=== PATIENT | female | born 1995 | race Caucasian/White ===

== ENCOUNTER 2017-02-11 04:28 | Emergency (ER) | payer BC ==
--- NOTE | 2017-02-11 05:40 | ER Document Report ---
ED GI/ - General Chief Complaint: Vag Bleeding, +preg <12wks Stated Complaint: VAGINAL BLEEDING Mode of Arrival: Ambulatory Information source: Patient TRAVEL OUTSIDE OF THE [place] IN LAST 30 DAYS: No - HPI Notes: 02/11/17 05:36 Patient arrives with complaints of vaginal bleeding. Says a who is approximate 6-8 weeks whose last normal menstrual period was December 07. She states that the last several weeks after intercourse she's had some light bleeding. She has discussed this with her primary care physician told her not to worry about and that she was passing clots. She woke up this morning to urinate and noticed that she was having heavier vaginal bleeding with clots. She states she was having some low back and lower abdominal cramping, but states that she has no cramping or pain currently. She denies any fevers. She still somewhat nauseous, but denies any vomiting or diarrhea. No dysuria or hematuria. She has not had a formal ultrasound versus an seen by NEUROUROLOGIST at this point. She does not know her blood type. She denies a rash or injury. She denies any intercourse in the last 12 hours. Her complaints at this moment. - Related Data Allergies/Adverse Reactions: No Known Allergies Allergy (Unverified 01/13/16 00:21) Past Medical History - Social History Smoking Status: Unknown if Ever Smoked Family History: Reviewed & Not Pertinent Patient has suicidal ideation: No Patient has homicidal ideation: No Renal/ Medical History: Denies: Hx Peritoneal Dialysis Review of Systems - Review of Systems -: Yes All other systems reviewed and negative Physical Exam - Vital signs Vitals: Temp Pulse Resp BP Pulse Ox 98.3 F 87 20 122/83 98 02/11/17 04:32 02/11/17 04:32 02/11/17 04:32 02/11/17 04:32 02/11/17 04:32 - Notes Notes: GENERAL: alert, cooperative, nontoxic, no distress. HEAD: normocephalic, atraumatic EYES: conjunctiva pink without discharge, no external redness or swelling. EARS: no external swelling, no external redness NOSE: atraumatic, no external swelling MOUTH/THROAT: mucous membranes moist and pink, posterior pharynx without erythema, swelling, exudate. No trismus or drooling. NECK: soft, supple, full range of motion, no meningismus. CHEST: no distress, lungs clear and equal throughout. No wheezing, rales, rhonchi. CARDIAC: regular rate and rhythm, no murmur, normal capillary refill, normal pulses. No peripheral edema noted. ABDOMEN: Soft, minimal tenderness over the suprapubic area. No rebound tenderness or guarding. BACK: full range of motion, no CVA tenderness. EXTREMITIES: full range of motion of all extremities. No redness, no swelling. NEURO: alert and oriented 3, no focal deficits, full range of motion of all extremities. PYSCH: appropriate mood, affect. Patient is cooperative. SKIN: pink, warm, dry, no rash. - Genitourinary External exam: Normal Speculum exam: Cervix closed. No: Vaginal discharge, Products of conception, Vaginal lacerations Vaginal bleeding: Mild Bimanuel exam: Normal. No: Cervical motion tender, Bladder/Urethral tender, Adnexal mass, Adnexal tenderness, Uterus enlarged Course - Re-evaluation Re-evalutation: 02/11/17 07:16 02/11/17 07:16 Patient is nontoxic with stable vitals. Patient has approximate 6 weeks and started vaginal bleeding today. Pelvic exam shows small amount of blood within the vaginal vault, no active bleeding. Cervical os is closed. No tenderness on bimanual exam. Ultrasound shows intrauterine without activity, this may be due to early . Patient's quantitative hCG is 6194. This point the patient will need a repeat Quant to ensure that it is rising. I discussed all this with the patient. Her blood type is O+, therefore RhoGAM is not indicated. She'll be instructed to have her hCG rechecked in 2 days. Follow up with her NEUROUROLOGIST at the next available appointment. Follow-up sooner for increased pain, severe bleeding, high fever, or any further concerns. I will check the patient's GC chlamydia cultures which are currently pending at this time. The patient is noted to have elevated blood pressure during today's emergency department visit. The patient was informed of this finding. The patient was instructed that this may be related to pre-hypertension and requires further evaluation with a primary care provider. The patient has no hypertensive symptoms at this time. The patient's emergency department workup and current diagnosis were explained to the patient and or family. Follow-up instructions were provided. Medications if prescribed were discussed. Instructions for when to return to the emergency department including specific worrisome symptoms were discussed with the patient and/or family. - Vital Signs Vital signs: Temp Pulse Resp BP Pulse Ox 98.3 F 87 20 122/83 98 02/11/17 04:32 02/11/17 04:32 02/11/17 04:32 02/11/17 04:32 02/11/17 04:32 - Laboratory Result Diagrams: 02/11/17 05:45 02/11/17 05:45 Laboratory results interpreted by me: 02/11/17 02/11/17 02/11/17 05:45 05:45 05:45 Chloride 108 H Serum HCG, Qual POSITIVE H Beta HCG, Quant 6194.80 H Discharge - Discharge Clinical Impression: Threatened miscarriage Condition: Stable Disposition: HOME, SELF-CARE Instructions: Bleeding During Early ([facility]) Additional Instructions: Return in 2 days for repeat hormone level. Hormone level today was 6194. He may return here to have this rechecked and call [phone] approximately 2 hours after having your blood drawn to check your results. Return sooner for increasing pain, severe bleeding, high fevers, or any further concerns. Your blood pressure was elevated during today's visit. Have this rechecked with your doctor. Forms: Follow-Up Laboratory Testing, Elevated Blood Pressure
[2017-02-11 05:57] LABS: ABSOLUTE BASOPHILS # (AUTO) 0.1 10^3/uL (0.0-0.2); ABSOLUTE EOSINOPHILS # (AUTO) 0.5 10^3/uL (0.0-0.6); ABSOLUTE NEUT (AUTO) 5.7 10^3/uL (1.7-8.2); BASOPHILS % (AUTO) 0.9 % (0-2); EOSINOPHILS % (AUTO) 4.6 % (0-6); HEMATOCRIT 38.3 % (36.0-47.0); HGB HCT DIFFERENCE 0.7; LYMPHOCYTES % (AUTO) 29.2 % (13-45); MEAN CORPUSCULAR HEMOGLOBIN 30.2 pg (27.0-33.4); MEAN CORPUSCULAR HGB CONC 34.1 g/dL (32.0-36.0); MEAN CORPUSCULAR VOLUME 89 fl (80-97); MONOCYTES % (AUTO) 9.5 % (3-13); RED BLOOD COUNT 4.32 10^6/uL (3.72-5.28); SEGMENTED NEUTROPHILS % (AUTO) 55.8 % (42-78); WHITE BLOOD COUNT 10.2 10^3/uL (4.0-10.5)
[2017-02-11 06:13] LABS: ALANINE AMINOTRANSFERASE 18 U/L (9-52); ALBUMIN 4.3 g/dL (3.5-5.0); ALKALINE PHOSPHATASE 114 U/L (38-126); ANION GAP 11 (5-19); ASPARTATE AMINO TRANSFERASE 24 U/L (14-36); BILIRUBIN,DIRECT 0.1 mg/dL (0.0-0.4); BILIRUBIN,TOTAL 0.3 mg/dL (0.2-1.3); BLOOD UREA NITROGEN 12 mg/dL (7-20); CALCIUM 9.8 mg/dL (8.4-10.2); CARBON DIOXIDE 23 mmol/L (22-30); CHLORIDE 108 mmol/L (98-107); CREATININE RESULT 0.68 mg/dL (0.52-1.25); GLUCOSE 99 mg/dL (75-110); POTASSIUM 4.3 mmol/L (3.6-5.0); SODIUM 141.8 mmol/L (137-145); TOTAL PROTEIN 7.1 g/dL (6.3-8.2)
[2017-02-11 07:51] LABS: CHLAM PCR DETECTED (NOT DETECT)
[2017-02-11 07:55] VITALS: BP 112/68
== END 2017-02-11 07:48 | disposition home or self-care (01) ==
LOC: ER 04:28
DX: O20.0 Threatened abortion (principal); O46.91 Antepartum hemorrhage, unspecified, first trimester; M54.5 Low back pain; R10.30 Lower abdominal pain, unspecified; Z3A.01 Less than 8 weeks gestation of pregnancy
CPT/HCPCS: 36415; 76817; 80053; 84702; 84703; 85025; 86850; 86900; 86901; 87210; 87491; 87591; 93976; 99284